=== PATIENT | male | born 1975 | race Caucasian/White ===

== ENCOUNTER 2016-05-28 00:12 | Emergency (ER) | payer OTHER ==
[~2016-05-28] VITALS: Ht 182.9 cm; Wt 149.1 kg
[~2016-05-28 00:12] MED LIST: ADVAIR 250/28 DISKU1 IH; ALLOPURINOL100 MG PO; BACTRIM DS 8001 TA1 PO; BACTRIM DS TAB1 EACH PO; CEPHALEXIN500 M1 PO; CIALIS10 MG PO; CIPRO 100MG TA100 MG PO; CIPRO 500MG TA500 MG PO; DICLOFENAC SODI75 MG PO; DILAUDID4 M1 PO; FLEXERIL 1010 MG/TAB PO; FLEXERIL10 MG PO; FLOMAX 0.40.4 MG/CAP PO; FLOMAX PO; FLOMAX0.4 MG PO; HUMALOG100 U/ML SC; KETOROLAC TROME10 MG PO; LANTUS100 U/ML SQ; LEVAQUIN 5500 MG/TA1 PO; LISINOPRIL5 MG PO; LORTAB 7.5/5001 TAB PO; MORPHINE SULFAT15 M7 PO; NAPROXEN500 MG PO; NEURONTIN300 MG PO; NORCO 325 MG-51 TA1 PO; NORCO 325 MG-51 TAB PO; NORCO 325 MG-7.1 TAB PO; NORFLEX100 MG PO; NOVOLOG 100U100 U/M1 SC; ORPHENADRINE C100 MG PO; PERCOCET 325 MG1 TA2 PO; PERCOCET 500 MG1 TAB PO; PERCOCET 7.5/321 TA1 PO; PRAVASTATIN SOD10 MG PO; SINGULAIR10 MG PO; TRAMADOL HCL E100 M1 PO; TRAMADOL HYDRO100 MG PO; TRICOR145 MG; ULTRAM50 M1 PO; UROCIT-K10 MEQ PO; VICTOZA6 MG/ML SQ; ZOFRAN 4MG T4 MG/TAB PO; ZOFRAN4 M2 PO
[2016-05-28] MEDS ORDERED: ZOFRAN8 MG PO (11:17)
[2016-05-28] MEDS ORDERED: NORCO 325 MG-51 TA1 PO (11:23)
[2016-05-28 11:30] VITALS: BP 124/62
== END 2016-05-28 11:34 | disposition home or self-care (01) ==
LOC: ED 00:12
DX: E11.9 Type 2 diabetes mellitus without complications (principal); A08.4 Viral intestinal infection, unspecified; E83.42 Hypomagnesemia; Z79.4 Long term (current) use of insulin
CPT/HCPCS: J1815; J3475; J7030

== ENCOUNTER → 2016-10-25 | Outpatient (CLI) | payer OTHER ==
[~2016-10-25] MED LIST changes: +ZOFRAN8 MG PO
== END ==
LOC: RAD 12:24
DX: R10.9 Unspecified abdominal pain (principal); K76.0 Fatty (change of) liver, not elsewhere classified

== ENCOUNTER → 2016-10-25 | Outpatient (REF) | LOC: LAB 12:59 | DX: R10.9 Unspecified abdominal pain (principal) ==

== ENCOUNTER → 2016-12-26 | Emergency (ER) | payer OTHER ==
[~2016-12-26] VITALS: Ht 182.9 cm; Wt 147.7 kg
[2016-12-26 19:04] VITALS: BP 132/74
== END ==
LOC: ED 16:06
DX: N23 Unspecified renal colic (principal); Z87.442 Personal history of urinary calculi; E11.9 Type 2 diabetes mellitus without complications; I10 Essential (primary) hypertension; E66.9 Obesity, unspecified; M54.5 Low back pain; G89.29 Other chronic pain; M10.9 Gout, unspecified; Z79.4 Long term (current) use of insulin
CPT/HCPCS: J1885; J2405; J7030; Q9967

== ENCOUNTER 2017-05-21 16:31 | Emergency (ER) | payer OTHER ==
[~2017-05-21 16:31] MED LIST changes: +CIPRO500 M1 PO; +CYCLOBENZAPRINE10 M1 PO; +FENOFIBRATE150 MG PO; +FLAGYL500 M1 PO; -FLEXERIL 1010 MG/TAB PO; +LANTUS PEN100 U/ML SQ; -LANTUS100 U/ML SQ; -NOVOLOG 100U100 U/M1 SC; +OMNIPOD1 EACH SC; +PHENERGAN 25 TA25 MG PO; +ZOFRAN 8MG8 MG PO
[2017-05-21 19:47] VITALS: BP 134/73
== END 2017-05-21 19:48 | disposition home or self-care (01) ==
LOC: ED 16:31
DX: G89.11 Acute pain due to trauma (principal); G89.21 Chronic pain due to trauma; M25.512 Pain in left shoulder; T14.90XS Injury, unspecified, sequela; X58.XXXS Exposure to other specified factors, sequela; Z87.828 Personal history of other (healed) physical injury and trauma; E10.9 Type 1 diabetes mellitus without complications; Z96.41 Presence of insulin pump (external) (internal); M10.9 Gout, unspecified; E66.9 Obesity, unspecified; Z86.14 Personal history of Methicillin resistant Staphylococcus aureus infection
CPT/HCPCS: J0595; J1885; J2405

== ENCOUNTER → 2018-01-02 | Outpatient (CLI) | payer OTHER | LOC: LAB 18:09 | DX: J02.9 Acute pharyngitis, unspecified (principal) ==

== ENCOUNTER 2018-06-18 05:52 | Emergency (ER) | payer OTHER ==
[~2018-06-18] VITALS: Ht 182.9 cm; Wt 128.6 kg
[2018-06-18 06:45] LABS: EOS # 0.1 (0.04-0.40); EOS % 1.6 % (0.0-4.0); HEMATOCRIT 45.5 % (42.0-52.0); HEMOGLOBIN 16.2 g/dL (13.5-18.0); LYMPH# 0.9 (1.50-4.00); MEAN CELL VOLUME 82 fl (78-100); MEAN CORPUSCULAR HEMOGLOBIN 29 pg (27-31); MEAN CORPUSCULAR HGB CONC 36 g/dL (33-37); MEAN PLATELET VOLUME 10.5 fl (7.4-10.4); MONO # 0.6 (0.20-0.80); NEU # 4.7 (1.40-6.50); PLATELET COUNT 277 K/mm3 (130-400); RED BLOOD COUNT 5.56 M/mm3 (4.20-5.60); RED CELL DISTRIBUTION WIDTH 12.8 % (11.5-14.5); WHITE BLOOD COUNT 6.3 K/mm3 (4.8-10.8)
[2018-06-18 06:55] LABS: ALT/SGPT 56 U/L (21-72); AST-SGOT 40 U/L (17-59); CALCIUM 8.4 mg/dL (8.4-10.2); CARBON DIOXIDE 25 mmol/L (22-30); GLUCOSE 327 mg/dL (75-110); LIPASE 33 U/L (23-300); POTASSIUM 3.7 mmol/L (3.6-5.0); SODIUM 132 mmol/L (137-145); TOTAL BILIRUBIN 0.8 mg/dL (0.2-1.3); TOTAL PROTEIN 6.9 g/dL (6.3-8.2)
[2018-06-18 06:59] LABS: PH-URINE 5.5 (5.0 - 8.0); URINE APPEARANCE CLEAR; URINE BILIRUBIN NEGATIVE (NEGATIVE); URINE BLOOD NEGATIVE (NEGATIVE); URINE COLOR YELLOW; URINE KETONE 1+ (NEGATIVE); URINE LEUKOCYTE ESTERASE NEGATIVE (NEGATIVE); URINE NITRATE NEGATIVE (NEGATIVE); URINE PROTEIN(semi-quant) TRACE mg/dL (NEGATIVE); URINE UROBILINOGEN NORMAL (NORMAL); URINE WBC 0-1 /hpf (0-3)
[2018-06-18] MEDS ORDERED: ZOFRAN ODT4 MG PO (07:26)
[2018-06-18 08:56] VITALS: BP 148/94
== END 2018-06-18 09:00 | disposition home or self-care (01) ==
LOC: ED 05:52
PROVIDERS: Nurse Practitioner Family
DX: K52.9 Noninfective gastroenteritis and colitis, unspecified (principal); M25.512 Pain in left shoulder; K64.8 Other hemorrhoids; K21.9 Gastro-esophageal reflux disease without esophagitis; I48.91 Unspecified atrial fibrillation; E11.69 Type 2 diabetes mellitus with other specified complication; M86.8X1 Other osteomyelitis, shoulder; B95.7 Other staphylococcus as the cause of diseases classified elsewhere; M10.9 Gout, unspecified; G89.29 Other chronic pain; M54.9 Dorsalgia, unspecified; R29.0 Tetany; Z90.49 Acquired absence of other specified parts of digestive tract; Z79.4 Long term (current) use of insulin; Z96.0 Presence of urogenital implants
CPT/HCPCS: J2270; J2405; J7030

== ENCOUNTER 2018-12-01 17:23 | Emergency (ER) | payer OTHER ==
[~2018-12-01] VITALS: Ht 182.9 cm; Wt 137.7 kg
[~2018-12-01 17:23] MED LIST changes: +NORCO 10-325 T1 EACH PO; +ZOFRAN ODT4 MG PO
[2018-12-01] MEDS ORDERED: TRAMADOL 50 MG TAB PO (17:32)
[2018-12-01] MEDS ORDERED: BACLOFEN5 MG PO (17:32)
[2018-12-01 18:03] LABS: ALBUMIN 4.2 g/dL (3.5-5.0); EOS # 0.1 (0.04-0.40); EOS % 1.4 % (0.0-4.0); HEMATOCRIT 43.9 % (42.0-52.0); HEMOGLOBIN 15.5 g/dL (13.5-18.0); LYMPH# 2.5 (1.50-4.00); MEAN CELL VOLUME 84 fl (78-100); MEAN CORPUSCULAR HEMOGLOBIN 30 pg (27-31); MEAN CORPUSCULAR HGB CONC 35 g/dL (33-37); MEAN PLATELET VOLUME 9.9 fl (7.4-10.4); MONO # 0.7 (0.20-0.80); NEU # 5.2 (1.40-6.50); PLATELET COUNT 322 K/mm3 (130-400); POTASSIUM 4.1 mmol/L (3.5-5.1); RED CELL DISTRIBUTION WIDTH 12.4 % (11.5-14.5); WHITE BLOOD COUNT 8.5 K/mm3 (4.8-10.8)
[2018-12-01 18:05] LABS: CALCIUM 9.3 mg/dL (8.3-10.5)
[2018-12-01 18:06] LABS: TOTAL PROTEIN 7.2 g/dL (6.4-8.3)
[2018-12-01 18:08] LABS: TOTAL BILIRUBIN 0.6 mg/dL (0.2-1.2)
[2018-12-01 18:55] VITALS: BP 127/77
== END 2018-12-01 18:55 | disposition home or self-care (01) ==
LOC: ED 17:23
PROVIDERS: Nurse Practitioner Primary Care
DX: R10.9 Unspecified abdominal pain (principal); I25.2 Old myocardial infarction; E11.69 Type 2 diabetes mellitus with other specified complication; M86.9 Osteomyelitis, unspecified; I10 Essential (primary) hypertension; Z79.4 Long term (current) use of insulin; Z79.891 Long term (current) use of opiate analgesic; Z87.442 Personal history of urinary calculi
CPT/HCPCS: J2270; J2405

== ENCOUNTER 2019-03-08 04:04 | Emergency (ER) | payer OTHER ==
[~2019-03-08] VITALS: Ht 182.9 cm; Wt 128.6 kg
[~2019-03-08 04:04] MED LIST changes: +BACLOFEN5 MG PO; +TRAMADOL 50 MG TAB PO
[2019-03-08] MEDS ORDERED: ALPROSTADIL SQ (04:18)
[2019-03-08] MEDS ORDERED: TESTOSTERO TP (04:21)
[2019-03-08 05:06] VITALS: BP 127/85
== END 2019-03-08 05:06 | disposition home or self-care (01) ==
LOC: ED 04:04
DX: N48.33 Priapism, drug-induced (principal); M10.9 Gout, unspecified; Z87.442 Personal history of urinary calculi; Z98.890 Other specified postprocedural states

== ENCOUNTER 2019-08-11 22:45 | Emergency (ER) | payer OTHER ==
[~2019-08-11] VITALS: Ht 182.9 cm; Wt 127.7 kg
[~2019-08-11 22:45] MED LIST changes: +ALPROSTADIL SQ; +TESTOSTERO TP
[2019-08-11] MEDS ORDERED: CIALIS5 MG PO (23:05)
[2019-08-12 00:34] VITALS: BP 150/94
== END 2019-08-12 00:34 | disposition home or self-care (01) ==
LOC: ED 22:45
DX: M25.512 Pain in left shoulder (principal); G89.29 Other chronic pain; I48.91 Unspecified atrial fibrillation; J45.909 Unspecified asthma, uncomplicated; E11.9 Type 2 diabetes mellitus without complications; E78.5 Hyperlipidemia, unspecified; Z79.891 Long term (current) use of opiate analgesic; Z96.653 Presence of artificial knee joint, bilateral; Z98.890 Other specified postprocedural states
CPT/HCPCS: J2270; J2550

== ENCOUNTER 2019-12-12 21:44 | Emergency (ER) | payer OTHER ==
[~2019-12-12] VITALS: Ht 182.9 cm; Wt 126.8 kg
[~2019-12-12 21:44] MED LIST changes: +CIALIS5 MG PO
[2019-12-13 00:25] VITALS: BP 146/91
== END 2019-12-13 00:25 | disposition home or self-care (01) ==
LOC: ED 21:44
DX: M54.2 Cervicalgia (principal); M25.511 Pain in right shoulder; E11.9 Type 2 diabetes mellitus without complications; I10 Essential (primary) hypertension; I25.10 Atherosclerotic heart disease of native coronary artery without angina pectoris; I25.2 Old myocardial infarction; M10.9 Gout, unspecified; X50.0XXA Overexertion from strenuous movement or load, initial encounter; Y99.0 Civilian activity done for income or pay
CPT/HCPCS: J1885; J2360

== ENCOUNTER 2020-02-29 19:57 | Emergency (ER) | payer OTHER ==
[~2020-02-29] VITALS: Ht 182.9 cm; Wt 125.9 kg
[~2020-02-29 19:57] MED LIST changes: +ZYLOPRIM300 MG PO
[2020-03-01 00:20] VITALS: BP 131/76
== END 2020-03-01 00:20 | disposition home or self-care (01) ==
LOC: ED 19:57
DX: M62.838 Other muscle spasm (principal); M10.9 Gout, unspecified; I25.2 Old myocardial infarction; I25.10 Atherosclerotic heart disease of native coronary artery without angina pectoris; Z90.49 Acquired absence of other specified parts of digestive tract
CPT/HCPCS: J1885; J2270; J2550; J3360; J7030

== ENCOUNTER 2020-03-08 19:09 | Emergency (ER) | payer OTHER ==
[~2020-03-08] VITALS: Ht 182.9 cm; Wt 125.1 kg
[2020-03-08] MEDS ORDERED: MEDI TP (19:21)
[2020-03-08 23:00] VITALS: BP 140/79
== END 2020-03-08 23:00 | disposition home or self-care (01) ==
LOC: ED 19:09
DX: M54.2 Cervicalgia (principal); G89.29 Other chronic pain; M62.838 Other muscle spasm; M10.9 Gout, unspecified; I25.10 Atherosclerotic heart disease of native coronary artery without angina pectoris; I25.2 Old myocardial infarction; Z87.442 Personal history of urinary calculi
CPT/HCPCS: J1885; J2270; J2550; J7030

== ENCOUNTER 2020-04-02 21:25 | Emergency (ER) | payer OTHER ==
[~2020-04-02] VITALS: Ht 182.9 cm; Wt 130.6 kg
[~2020-04-02 21:25] MED LIST changes: +MEDI TP
[2020-04-03] MEDS ORDERED: ZESTRIL5 M1 PO (00:50)
[2020-04-03 01:18] VITALS: BP 142/91
== END 2020-04-03 01:20 | disposition home or self-care (01) ==
LOC: ED 21:25
DX: R11.2 Nausea with vomiting, unspecified (principal); R00.0 Tachycardia, unspecified; G89.29 Other chronic pain; I25.2 Old myocardial infarction; Z90.49 Acquired absence of other specified parts of digestive tract
CPT/HCPCS: J2060; J2405; J7030

== ENCOUNTER 2021-01-24 16:48 | Emergency (ER) | payer OTHER ==
[~2021-01-24] VITALS: Ht 182.9 cm; Wt 123.8 kg
[~2021-01-24 16:48] MED LIST changes: +ZESTRIL5 M1 PO
[2021-01-24] MEDS ORDERED: ZANAFLEX4 M1 PO (17:18)
[2021-01-24] MEDS ORDERED: OZEMPIC1 MG/0.71 SQ (17:18)
[2021-01-24 19:00] VITALS: BP 133/83
== END 2021-01-24 19:45 | disposition home or self-care (01) ==
LOC: ED 16:48
DX: S16.1XXA Strain of muscle, fascia and tendon at neck level, initial encounter (principal); G89.29 Other chronic pain; I10 Essential (primary) hypertension; I25.10 Atherosclerotic heart disease of native coronary artery without angina pectoris; I25.2 Old myocardial infarction; M10.9 Gout, unspecified; Z98.1 Arthrodesis status; Z79.899 Other long term (current) drug therapy; Z79.891 Long term (current) use of opiate analgesic; X58.XXXA Exposure to other specified factors, initial encounter
CPT/HCPCS: J1885; J2270

== ENCOUNTER → 2021-05-01 | Outpatient (CLI) | payer OTHER ==
[~2021-05-01] MED LIST changes: +OZEMPIC1 MG/0.71 SQ; +ZANAFLEX4 M1 PO
== END ==
LOC: MAMMO 07:09
DX: N63.10 Unspecified lump in the right breast, unspecified quadrant (principal); Z84.81 Family history of carrier of genetic disease

== ENCOUNTER → 2023-04-16 | Outpatient (CLI) | payer BC | LOC: RAD 10:51 | DX: M17.11 Unilateral primary osteoarthritis, right knee (principal); Z96.651 Presence of right artificial knee joint ==